=== PATIENT | male | born 1985 | race African-American/Black ===

== ENCOUNTER 2021-09-04 15:00 | Emergency (ER) | payer OTHER ==
[~2021-09-04] VITALS: Ht 167.6 cm; Wt 88.0 kg
[2021-09-04 15:10] VITALS: BP 140/82
[2021-09-04] MEDS ORDERED: FLUORESCEIN SODIUM 1MG/STRIP LEFTEYE ONE (17:00)
[2021-09-04] MEDS ORDERED: TETRACAINE 0.5% OPHTH DROPS 4ML LEFTEYE ONE (17:00)
[2021-09-04] MEDS ORDERED: OFLO5DRO3 LEFTEYE (17:36)
[2021-09-04] MEDS ORDERED: ACUL5 LEFTEYE (17:36)
== END 2021-09-04 17:44 | disposition home or self-care (01) ==
LOC: ER 15:00
DX: S05.02XA Injury of conjunctiva and corneal abrasion without foreign body, left eye, initial encounter (principal); X58.XXXA Exposure to other specified factors, initial encounter; Y93.89 Activity, other specified; Y92.89 Other specified places as the place of occurrence of the external cause; Y99.8 Other external cause status
CPT/HCPCS: 99283